=== PATIENT | female | born 1935 | race Caucasian/White ===

== ENCOUNTER 2017-09-30 12:45 | Inpatient (IN) | payer OTHER, MEDICARE ==
[~2017-09-30] VITALS: Ht 167.6 cm; Wt 87.5 kg
[~2017-09-30 12:45] MED LIST: LEVOTHYROXINE0.1 M1 PO
--- NOTE | 2017-09-30 13:17 | ED NEURO DEFICIT/STROKE ---
History of Present Illness General Chief Complaint: Upper Extremity Problem Stated Complaint: L ARM WEAKNESS X FEW HRS, NO OTHER SYMPTOMS Source: patient, family Exam Limitations: no limitations Vital Signs & Intake/Output Vital Signs & Intake/Output Vital Signs Date Time Temp Pulse Resp B/P B/P Pulse O2 O2 Flow FiO2 Mean Ox Delivery Rate 09/30 1615 59 15 164/58 97 Room Air Room Air 09/30 1456 97.6 63 16 162/84 97 Room Air 09/30 1400 Room Air Room Air 09/30 1248 96.2 55 16 166/69 95 Room Air Allergies Coded Allergies: NO KNOWN ALLERGIES (09/17/14) Reconcile Medications Levothyroxine Sodium 0.1 MG TAB 1 TAB PO DAILY AC THYROID (Reported) Triage Note: 81 Y/O FEMALE PRESENTS WITH L ARM WEAKNESS SINCE ? [id number] TODAY. DENIES ALL OTHER COMPLAINTS STATING "JUST FEELS LIKE A ARM". ABLE TO MOVE ARM THOUGH CANNOT LIFT HIGH THE RIGHT. L GRASP WEAKER THAN RIGHT. NO FACIAL DROOP NOTED Triage Nurses Notes Reviewed? yes Onset: Abrupt Duration: constant Timing: recent history Severity: moderate New Weakness: LUE HPI: Patient is a 81-year-old female with past medical history of hypertension and hypothyroidism who presents emergency room with concerns that today she woke up in her normal state of health approximately 9:30-10 AM while at rest she had a acute onset of left arm weakness where she cannot lift her arm as high as her right arm. Patient is left arm dominant. Denies any pain denies any fever chills headache neck pain blurred vision or visual acuity changes, facial droop slurred speech chest pain shortness of breath arm pain and jaw pain diaphoresis leg swelling, hemoptysis or lower extremity weakness or difficulty finding her words or confusion. History is confirmed by who is present. Patient took 2 X 325 aspirin prior to arrival (Noel Cano) Past History Travel History Traveled to [place] past 21 day No Medical History Any Pertinent Medical History? 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 No (Noel Cano) Review of Systems Review of Systems Constitutional: Reports: no symptoms. EENTM: Reports: no symptoms. Respiratory: Reports: no symptoms. Cardiovascular: Reports: no symptoms. GI: Reports: no symptoms. Genitourinary: Reports: no symptoms. Musculoskeletal: Reports: see HPI. Skin: Reports: no symptoms. Neurological/Psychological: Reports: see HPI. Hematologic/Endocrine: Reports: no symptoms. Immunologic/Allergic: Reports: no symptoms. All Other Systems: Reviewed and Negative (Noel Cano) Physical Exam Physical Exam General Appearance: no apparent distress, alert, comfortable Head: atraumatic Eyes: Bilateral: normal appearance, PERRL, EOMI. Ears, Nose, Throat: normal ENT inspection, moist mucous membrane, hearing grossly normal Neck: normal inspection, supple Respiratory: normal breath sounds, chest non-tender, no respiratory distress Cardiovascular: regular rate/rhythm, normal peripheral pulses Peripheral Pulses: 2+ radial (L) Gastrointestinal: normal bowel sounds, soft, non-tender Psychiatric: awake, alert, oriented x 3 Cranial Nerves: normal hearing, normal speech, PERRL Coordination/Gait: normal gait Skin: intact, normal color, warm/dry Comments: Cranial nerves II through XII intact Core Measures CVA/TIA Diagnosis: Yes NIH Stroke Scale NIH Stroke Scale Response Value Level of Consciousness alert 0 LOC Questions answers both correctly 0 LOC Commands obeys both correctly 0 Best Gaze normal 0 Visual Dickerson no visual loss 0 Facial Paresis normal 0 Motor Arm - Left can't resist gravity 2 Total 2 Symptom Start Date: 09/30/17 Swallow Evaluation Pass Swallow eval date 09/30/17 Swallow eval time 1330 Sepsis Present: No Sepsis Focused Exam Completed? No (Noel Cano) Progress Differential Diagnosis: acute glaucoma, Arroyo's Palsy, drug intoxication, electrolyte imbalance, encephalitis, hypoglycemia, intracranial Hem., intracranial mass/tumor, meningitis, migraine ARCOS, seizure disorder, stroke, subarachnoid Hem., vertebrobasilar insuff. Plan of Care: Orders Procedure Date/time Status Regular Diet 09/30 D Active Patient Data 09/30 1553 Active OXYGEN SETUP (GEN) 09/30 1550 Active Saline Lock 09/30 1550 Active Admit to inpatient 09/30 1550 Active Vital Signs 09/30 1550 Active Activity/Ambulation 09/30 1550 Active Code Status 09/30 1550 Active TROPONIN LEVEL 09/30 1316 Complete PARTIAL THROMBOPLASTIN TIME 09/30 1316 Complete PROTHROMBIN TIME 09/30 1316 Complete COMPREHENSIVE METABOLIC PANEL 09/30 1316 Complete CBC WITHOUT DIFFERENTIAL 09/30 131 Complete EKG 09/30 1254 Active Laboratory Tests 09/30/17 1320: Anion Gap 12, Estimated GFR 36 L, BUN/Creatinine Ratio 19.3, Glucose 113 H, Calcium 9.7, Total Bilirubin 0.6, AST 18, ALT 22, Alkaline Phosphatase 104, Troponin I < 0.01, Total Protein 7.9, Albumin 4.1, Globulin 3.8, Albumin/ Globulin Ratio 1.1, PT 10.9, INR 1.00, APTT 30, CBC w Diff NO MAN DIFF REQ, RBC 4.59, MCV 84.0, MCH 27.7, MCHC 33.0, RDW 14.0, MPV 7.7, Gran % 60.3, Lymphocytes % 18.9 L, Monocytes % 9.2, Eosinophils % 10.7 H, Basophils % 0.9, Absolute Granulocytes 5.3, Absolute Lymphocytes 1.7, Absolute Monocytes 0.8 H, Absolute Eosinophils 0.9, Absolute Basophils 0.1 Dizziness of present illness and exam findings and initially there was suspicion of acute CVA however patient's left upper extremity was noted with flexion of the shoulder to have a drift which would score NIH to be 2 over patient had dermatomes intact radial pulse +2 intact and had a full follow up manager strength left hand and full resisted range of motion of wrist. CT scan was resulted of angiogram of head and neck showing concerns of infarct to the right middle frontal gyrus, discuss results with Neurology was paged patient will be admitted to telemetry. Patient was therapeutic on aspirin prior to arrival Discussed results with patient and family members were aware PATIENTS - [facility] [phone] Discussed PT with neurologist Dr. Reyna who is aware of the PT AND admission and HE STATES no emergent intervention WARRANTED at this time Diagnostic Imaging: Viewed by Me: Radiology Read, CT Scan. Radiology Impression: acute abnormality Initial ED EK BPM,NSR Comments: PATIENT: MICK LARRY PRESENT AGE: 81 PATIENT ACCOUNT NO: [id number] : 36 LOCATION: [facility] ORDERING PHYSICIAN: Noel DO SERVICE DATE: 05 EXAM TYPE: RAD - XRY-SHOULDER COMPLETE-LEFT EXAMINATION: XR SHOULDER, LEFT CLINICAL INFORMATION: Left thumb weakness, paresthesia. COMPARISON: None TECHNIQUE: 3 views of the left shoulder. FINDINGS: The bony alignment is intact. The cortices are intact. No focal osseous abnormality present. The soft tissues are unremarkable. Mild diffuse osteopenia is seen. IMPRESSION: Mild diffuse osteopenia. No radiographic evidence of any acute fracture or dislocation or subluxation or any soft tissue abnormality. DICTATED BY: Juliocesar Ocampo MD DATE/TIME DICTATED:09/30/171425 SOFTWARE VALIDATION ENGINEER:CHIQUIS PATIENT: MICK LARRY PRESENT AGE: 81 PATIENT ACCOUNT NO: [id number] : 36 LOCATION: [facility] ORDERING PHYSICIAN: Noel DO SERVICE DATE: 09/30/17 EXAM TYPE: CAT - CT HEAD WO IV CONTRAST EXAMINATION: CT HEAD WITHOUT CONTRAST CLINICAL INFORMATION: Left arm weakness. COMPARISON: CT of the head done on 08/15/2017. TECHNIQUE: Contiguous axial imaging was performed from the skull base to vertex without intravenous administration of contrast. DLP: 604.82 mGy-cm FINDINGS: There is no evidence of acute intracranial hemorrhage or territorial infarction. No abnormal mass effect or midline shift is seen. Apple to white matter differentiation is well preserved. No extra-axial fluid collections are identified. The ventricles are normal in size. Mild diffuse cortical atrophy and mild chronic microvascular deep white matter ischemic changes are present. Previously documented right periorbital soft tissue hematoma shows interval resolution. The osseous structures and soft tissues are normal. The mastoid air cells and visualized portions of the paranasal sinuses are well aerated. IMPRESSION: Interval resolution of right periorbital soft tissue hematoma since 08/15/2017. No other significant change. Specifically no acute intracranial pathology. DICTATED BY: Juliocesar Ocampo MD DATE/TIME DICTATED:09/30/171349 SOFTWARE VALIDATION ENGINEER:CHIQUIS DATE/TIME TRANSCRIBED:09/30/17 (Noel Cano) Departure Departure Disposition: STILL A PATIENT Condition: Guarded Clinical Impression Primary Impression: CVA (cerebral vascular accident) Referrals: Iliana Dahl APRN (PCP/Family) Departure Forms: Customer Survey General Discharge Information Admission Note Spoke With: Chelsea Souza MD Documentation of Exam: Documentation of any treatments & extenuating circumstances including Concerns Regarding Discharge (functional status, medication knowledge or non-compliance, living conditions, etc.) that warrant an admission rather than observation: [ Patient requires telemetry monitoring and frequent neurological checks and neurology consultation anticoagulation and possible short-term rehabilitation] (Noel Cano) PA/FLIGHT COMMUNICATIONS SPECIALIST Co-Sign Statement Statement: ED Attending supervision documentation- X I saw and evaluated the patient. I have also reviewed all the pertinent lab results and diagnostic results. I agree with the findings and the plan of care as documented in the PA's/FLIGHT COMMUNICATIONS SPECIALIST's documentation. 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 [] Additions or exceptions (if any) to the PAs/FLIGHT COMMUNICATIONS SPECIALIST's note and plan are summarized below: [] (Red CHILDERS,Thanh) Critical Care Note Critical Care Note Critical Care Time: 30-74 min (Noel Cano)
[2017-09-30 13:47] LABS: ABSOLUTE BASOPHIL COUNT 0.1 /CUMM (0.0-0.2); ABSOLUTE EOSINOPHIL COUNT 0.9 /CUMM (0.0-0.7); ABSOLUTE GRANULOCYTE CT 5.3 /CUMM (1.4-6.5); ABSOLUTE LYMPH COUNT 1.7 /CUMM (1.2-3.4); ABSOLUTE MONOCYTE COUNT 0.8 /CUMM (0.10-0.60); BASOPHIL % 0.9 % (0.0-2.0); EOSINOPHIL % 10.7 % (0-5); GRANULOCYTE % 60.3 % (42.2-75.2); HEMATOCRIT 38.6 % (37-47); MEAN CORPUSCULAR HGB 27.7 PG (27.0-31.0); MEAN PLATELET VOLUME 7.7 FL (7.4-10.4); PLATELET COUNT 388 /CUMM (130-400); RED BLOOD CELL CT 4.59 /CUMM (4.20-5.40); WHITE BLOOD CELL COUNT 8.8 /CUMM (4.8-10.8)
[2017-09-30 13:52] LABS: PT 10.9 SEC (9.4-12.5); PTT 30 SEC (25-37)
--- NOTE | 2017-09-30 13:58 | CT SCAN REPORT ---
EXAMINATION: CT HEAD WITHOUT CONTRAST CLINICAL INFORMATION: Left arm weakness. COMPARISON: CT of the head done on 08/15/2017. TECHNIQUE: Contiguous axial imaging was performed from the skull base to vertex without intravenous administration of contrast. DLP: 604.82 mGy-cm FINDINGS: There is no evidence of acute intracranial hemorrhage or territorial infarction. No abnormal mass effect or midline shift is seen. Apple to white matter differentiation is well preserved. No extra-axial fluid collections are identified. The ventricles are normal in size. Mild diffuse cortical atrophy and mild chronic microvascular deep white matter ischemic changes are present. Previously documented right periorbital soft tissue hematoma shows interval resolution. The osseous structures and soft tissues are normal. The mastoid air cells and visualized portions of the paranasal sinuses are well aerated. IMPRESSION: Interval resolution of right periorbital soft tissue hematoma since 08/15/2017. No other significant change. Specifically no acute intracranial pathology.
--- NOTE | 2017-09-30 14:43 | RADIOLOGY REPORT ---
EXAMINATION: XR SHOULDER, LEFT CLINICAL INFORMATION: Left thumb weakness, paresthesia. COMPARISON: None TECHNIQUE: 3 views of the left shoulder. FINDINGS: The bony alignment is intact. The cortices are intact. No focal osseous abnormality present. The soft tissues are unremarkable. Mild diffuse osteopenia is seen. IMPRESSION: Mild diffuse osteopenia. No radiographic evidence of any acute fracture or dislocation or subluxation or any soft tissue abnormality.
--- NOTE | 2017-09-30 15:26 | CT SCAN REPORT ---
EXAMINATION: CT ANGIOGRAM NECK WITH CONTRAST CT ANGIOGRAM BRAIN WITH CONTRAST CLINICAL INFORMATION: Left arm weakness. COMPARISON: Head CT performed earlier the same day. TECHNIQUE: Test bolus sequences followed by intravenous administration 95 mL of Optiray 320. Helical imaging was performed in the axial plane from the thoracic inlet to the skull vertex. Delayed postcontrast imaging of the head was also performed. The data was processed at the staff cytotechnologist workstation for generation of MIP sequences. Angled MIPs and volume rendered reformatted images were also generated at an offline 3D workstation. Stenoses are assessed in accordance with NASCET criteria unless otherwise indicated. DLP: 1005 mGy-cm FINDINGS: Brain: There is focal hypoattenuation in the right middle frontal gyrus with gyriform enhancement on the postcontrast images typical of a subacute infarct. There is no CT evidence of large territory infarction. Chronic lacunar infarct in the left thalamus. There is moderate scattered hypoattenuation in the bilateral cerebral white matter, which is nonspecific but likely reflects small vessel disease. There is mild diffuse brain parenchymal volume loss with prominence of the ventricles and sulci. No evidence of hydrocephalus. There is mild to moderate paranasal sinus mucosal thickening. Neck CTA: There is severe atheromatous change involving the aortic arch but without severe stenosis of the great vessel origins. There are atheromatous changes involving the bilateral common carotid arteries without significant stenosis. Atheromatous changes at the bilateral carotid bifurcations extending into the proximal internal carotid arteries resulting in 61% stenosis of the proximal right ICA and less than 50% stenosis of the proximal left ICA. The cervical segments of both internal carotid arteries are patent. There is moderate stenosis at the left vertebral artery origin. Both vertebral artery cervical segments are patent. Head CTA: No intracranial aneurysm or large vessel occlusion is seen. ACAs and MCAs are patent. The intradural vertebral arteries and basilar artery are patent. There is focal stenosis involving the calcarine and parieto-occipital branches of the right CUPOLA PATCHER HELPER. The left CUPOLA PATCHER HELPER is patent. The posterior communicating arteries are atretic. Non-vascular findings: There are emphysematous changes at the bilateral lung apices without consolidation or mass. Multilevel degenerative changes are seen throughout the cervical and upper thoracic spine. There is no neck mass or fluid collection. IMPRESSION: CT head: - No intracranial hemorrhage or large acute acute infarction. - Subacute infarct in the right middle frontal gyrus within the middle cerebral artery territory with associated enhancement. - Chronic lacunar infarct in the left thalamus and background changes of moderate microangiopathy. CTA neck: - Atheromatous changes result in 61% stenosis of the proximal right ICA with less than 50% stenosis of the proximal left ICA. - Moderate stenosis of the left vertebral artery origin. - Severe atheromatous changes involving the aortic arch. CTA head: - No large vessel occlusion. - Focal stenoses involving the calcarine and parieto-occipital branches of the right CUPOLA PATCHER HELPER.
--- NOTE | 2017-09-30 16:02 | History & Physical ---
Kina CHILDERS,[facility] 09/30/17 1601: General Information and HPI MD Statement: I have seen and personally examined MICK LARRY and documented this H&P. The patient is a 81 year old F who presented with a patient stated chief complaint of [left upper extremity weakness]. Source of Information: patient, family Exam Limitations: no limitations History of Present Illness: 9-year-old female with a past medical history of hypertension and hypothyroidism who presented with a chief complaint of left upper extremity weakness. The patient was in her usual state of health until 9:30 this morning when she started to notice left upper extremity weakness. Her symptoms did not improve for which she decided to visit the ED. She denies any other weaknesses, numbness, or tingling. She had no history of cardiac disease, atrial fibrillation, or CVA in the past. Prior to coming to the ED she took 650 mg of aspirin. The rest of the review of system were benign Allergies/Medications Allergies: Coded Allergies: NO KNOWN ALLERGIES (09/17/14) Home Med list Amlodipine Besylate 10 MG TABLET 1 TAB PO DAILY HTN (Reported) Carvedilol 25 MG TABLET 1 TAB PO BID HTN (Reported) Levothyroxine Sodium 100 MCG TABLET 1 TAB PO DAILY HYPOTHYROID (Reported) Past History Travel History Traveled to [place] past 21 day No Medical History Neurological: NONE EENT: NONE Cardiovascular: hypertension Respiratory: NONE Gastrointestinal: NONE Hepatic: NONE Renal: NONE Musculoskeletal: NONE Psychiatric: NONE Endocrine: hypothyroidism Blood Disorders: NONE 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 Denies: chills, diaphoresis, fever, malaise, unexplained weight loss. EENTM: Denies: visual changes, hearing changes. Cardiovascular: Denies: chest pain, edema, orthopena, palpitations, peripheral edema, syncope. Respiratory: Reports: cough. Denies: hemoptysis, orthopnea, short of breath, sputum production, stridor, wheezing. GI: Denies: abdominal pain, bloating, constipation, diarrhea, melena, nausea, vomiting. Genitourinary: Denies: dysuria, hematuria. Musculoskeletal: Denies: muscle pain. Skin: Denies: rash. Neurological/Psychological: Reports: weakness (left UE). Denies: anxiety, ataxia, confusion, depressed, dementia, headache, numbness, tingling, tremors. Exam & Diagnostic Data Last 24 Hrs of Vital Signs/I&O Vital Signs Date Time Temp Pulse Resp B/P B/P Pulse O2 O2 Flow FiO2 Mean Ox Delivery Rate 09/30 1615 59 15 164/58 97 Room Air Room Air 09/30 1456 97.6 63 16 162/84 97 Room Air 09/30 1400 Room Air Room Air 09/30 1248 96.2 55 16 166/69 95 Room Air Intake & Output 09/30 1600 09/30 0800 09/30 0000 Intake Total 0 Output Total Balance 0 Intake, Oral 0 Patient 81.647 kg Weight Weight Reported by Patient Measurement Method Physical Exam General Appearance Alert, Oriented X3, Cooperative, No Acute Distress Skin No Rashes HEENT Atraumatic, PERRLA, EOMI, Mucous Membr. moist/pink Neck Supple, No JVD Cardiovascular Regular Rate, Normal S1, Normal S2, No Murmurs Lungs normal air-entry with mild diffuse wheezing Abdomen Soft, No Tenderness Neurological Normal Gait, Normal Speech, Strength at 5/5 X4 Ext, Sensation Intact, Cranial Nerves 3-12 NL, left UE driffting and weaker sas administrator compare to right hand Extremities No Clubbing, No Cyanosis, No Edema Last 24 Hrs of Labs/Ruben: Laboratory Tests 09/30/17 1320: Anion Gap 12, Estimated GFR 36 L, BUN/Creatinine Ratio 19.3, Glucose 113 H, Calcium 9.7, Total Bilirubin 0.6, AST 18, ALT 22, Alkaline Phosphatase 104, Troponin I < 0.01, Total Protein 7.9, Albumin 4.1, Globulin 3.8, Albumin/ Globulin Ratio 1.1, PT 10.9, INR 1.00, APTT 30, CBC w Diff NO MAN DIFF REQ, RBC 4.59, MCV 84.0, MCH 27.7, MCHC 33.0, RDW 14.0, MPV 7.7, Gran % 60.3, Lymphocytes % 18.9 L, Monocytes % 9.2, Eosinophils % 10.7 H, Basophils % 0.9, Absolute Granulocytes 5.3, Absolute Lymphocytes 1.7, Absolute Monocytes 0.8 H, Absolute Eosinophils 0.9, Absolute Basophils 0.1 Assessment/Plan Assessment: #CVA with left UE weakness * Monitor in telemetry to rule out A. fib as a source of the stroke * Start daily aspirin and statin * Echocardiogram * Neuro check every 2 hours * Permissive hypertension target blood pressure 160/90 * She passed bedside swallow eval * Neurology was consulted #Hypertension * Continue carvedilol * Hold amlodipine for permissive hypertension * Target blood pressure 160/90 #Hypothyroidism * Continue home dose of 100 levothyroxin #CRISTI * Most likely secondary to dehydration * We will start gentle IV hydration with half-normal saline @ 50ml/h * BEP in am -Heart healthy diet -DVT prophylaxis with Alps and subcutaneous heparin -FC As Ranked By This Provider Problem List: 1. CVA (cerebral vascular accident) Core Measures/Misc (01/20) Acute Coronary Syndrome ACS Diagnosis: No Congestive Heart Failure Congestive Heart Failure Diagnosis No Cerebrovascular Accident CVA/TIA Diagnosis: Yes NIH Stroke Scale: Total 1 Date Last Known Well: 09/30/17 Time Last Known Well: 929 Symptom Start Date: 09/30/17 Symptom Start Time: 929 Reason tPA not ordered Medical Contraindication (out-side windo and sx improved) Swallow Evaluation Pass Current/Past Hx AFib/AFlutter No VTE (View Protocol) VTE Risk Factors Acute Medical Illness No Mechanical VTE Prophylaxis d/t N/A MechProphylax Ordered No VTE Pharm Prophylaxis d/t NA PharmProphylax ordered Sepsis (View protocol) Sepsis Present: No If YES complete Sepsis Event Note If YES complete Sepsis Event Note Chelsea Souza MD 09/30/17 1848: Core Measures/Misc (01/20) Sepsis (View protocol) If YES complete Sepsis Event Note If YES complete Sepsis Event Note Attending MD Review Statement Attending Statement Attending MD Statement: examined this patient, discuss w/resident/PA/FIELD INSTALLER, agreed w/resident/PA/FIELD INSTALLER, reviewed EMR data (avail) Attending Assessment/Plan: 81F presenting with awakening with left arm weakness. Found herself unable to raise her left arm at the shoulder, though her handgrip was intact. She only elt weaknes there., and no other symptoms. She was able to grab something with her left hand but not hold on to it. She denies headache, vision changes, slurred speech dysphagia, neck pain, arm pain, paresthiesa, numbness. No prior similar symptoms. CT head shows right infarct. Passed bedside swallow. Plan - Admit to telemetry - ASA and statin - Neurology consult - Echocardiogram - Occupational therapy - Continue home medications - DVT PPx
[2017-09-30] MEDS ORDERED: CARVEDILOL25 M1 PO (16:57)
[2017-09-30] MEDS ORDERED: AMLODIPINE BESY10 M1 PO (16:57)
[2017-09-30] MEDS ORDERED: LEVOTHYROXINE100 MC1 PO (16:57)
[2017-09-30 17:40] VITALS: BP 178/92
[2017-09-30 22:12] VITALS: BP 180/96
[2017-10-01 06:57] VITALS: BP 154/70
[2017-10-01 07:48] LABS: ABSOLUTE BASOPHIL COUNT 0.1 /CUMM (0.0-0.2); ABSOLUTE EOSINOPHIL COUNT 0.8 /CUMM (0.0-0.7); ABSOLUTE GRANULOCYTE CT 3.8 /CUMM (1.4-6.5); ABSOLUTE MONOCYTE COUNT 0.9 /CUMM (0.10-0.60); BASOPHIL % 0.9 % (0.0-2.0); EOSINOPHIL % 10.9 % (0-5); GRANULOCYTE % 50.3 % (42.2-75.2); HEMATOCRIT 36.5 % (37-47); MEAN CORPUSCULAR HGB 27.4 PG (27.0-31.0); MEAN CORPUSCULAR HGB CONC 32.6 G/DL (33.0-37.0); MEAN CORPUSCULAR VOLUME 83.9 FL (81.0-99.0); MEAN PLATELET VOLUME 7.8 FL (7.4-10.4); PLATELET COUNT 361 /CUMM (130-400); RBC DISTRIBUTION WIDTH 14.2 % (11.5-14.5); RED BLOOD CELL CT 4.35 /CUMM (4.20-5.40); WHITE BLOOD CELL COUNT 7.6 /CUMM (4.8-10.8)
--- NOTE | 2017-10-01 09:58 | PN- Housestaff ---
Kina CHILDERS,Isgail 10/01/17 0958: Subjective Follow-up For: left upper extremity weakness, with confirmed subacute right stroke Subjective: Afebrile, mildly hypertensive(permissive), and saturating well on room air. The patient left upper extremity weakness significantly improved, however she continue to be mildly below baseline. She denies any other current active complaints. Review of Systems Constitutional: Reports: see HPI. Objective Last 24 Hrs of Vital Signs/I&O Vital Signs Date Time Temp Pulse Resp B/P B/P Pulse O2 O2 Flow FiO2 Mean Ox Delivery Rate 10/01 1008 56 158/62 10/01 1001 56 158/62 10/01 0800 93 Room Air 10/01 0657 97.8 54 20 154/70 93 Room Air 09/30 2241 Room Air 09/30 2212 59 180/96 09/30 2212 98.2 59 18 180/96 95 09/30 1740 97.9 61 18 178/92 96 09/30 1615 59 15 164/58 97 Room Air Room Air 09/30 1456 97.6 63 16 162/84 97 Room Air 09/30 1400 Room Air Room Air 09/30 1248 96.2 55 16 166/69 95 Room Air Intake & Output 10/01 1600 10/01 0800 10/01 0000 Intake Total 800 350 Output Total Balance 800 350 Intake, IV 350 Intake, Oral 800 Patient 87.543 kg Weight Weight Bed scale Measurement Method Physical Exam General Appearance: Alert, Oriented X3, Cooperative, No Acute Distress Skin: No Rashes HEENT: Atraumatic, PERRLA, EOMI, Mucous Membr. moist/pink Neck: Supple, No JVD Cardiovascular: Regular Rate, Normal S1, Normal S2, No Murmurs Lungs: Clear to Auscultation, Normal Air Movement Abdomen: Soft, No Tenderness Neurological: Normal Gait, Normal Speech, Strength at 5/5 X4 Ext, Normal Tone, Sensation Intact, Cranial Nerves 3-12 NL, Reflexes 2+, mild left side drifting Extremities: No Clubbing, No Cyanosis, No Edema Current Medications: Current Medications Sig/Bro Start time Last Medication Dose Route Stop Time Status Admin Aspirin 81 MG DAILY 10/01 0900 AC 10/01 PO 0903 Atorvastatin Calcium 80 MG 1700 09/30 1700 AC 09/30 PO 1816 Carvedilol 25 MG BID 09/30 2100 AC 10/01 PO 1008 Heparin Sodium 5,000 UNIT Q8 09/30 2200 AC 10/01 (Porcine) SC 0545 Levothyroxine Sodium 0.1 MG DAILY AC 10/01 0700 AC 10/01 PO 0545 Sodium Chloride 1,000 ML Q20H 09/30 1730 DC 09/30 IV 1752 Sodium Chloride 500 ML BOLUS ONE 09/30 1415 DC 09/30 IV 09/30 1514 1500 Last 24 Hrs of Lab/Ruben Results Last 24 Hrs of Labs/Mics: Laboratory Tests 10/01/17 0631: Anion Gap 10, Estimated GFR 39 L, BUN/Creatinine Ratio 17.7, Triglycerides 139, Cholesterol 194, LDL Cholesterol, Calc 113, HDL Cholesterol 54, Cholesterol/HDL Ratio 4, CBC w Diff NO MAN DIFF REQ, RBC 4.35, MCV 83.9, MCH 27.4, MCHC 32.6 L, RDW 14.2, MPV 7.8, Gran % 50.3, Lymphocytes % 26.5, Monocytes % 11.4 H, Eosinophils % 10.9 H, Basophils % 0.9, Absolute Granulocytes 3.8, Absolute Lymphocytes 2.0, Absolute Monocytes 0.9 H, Absolute Eosinophils 0.8, Absolute Basophils 0.1 09/30/17 1320: Anion Gap 12, Estimated GFR 36 L, BUN/Creatinine Ratio 19.3, Glucose 113 H, Calcium 9.7, Total Bilirubin 0.6, AST 18, ALT 22, Alkaline Phosphatase 104, Troponin I < 0.01, Total Protein 7.9, Albumin 4.1, Globulin 3.8, Albumin/ Globulin Ratio 1.1, PT 10.9, INR 1.00, APTT 30, CBC w Diff NO MAN DIFF REQ, RBC 4.59, MCV 84.0, MCH 27.7, MCHC 33.0, RDW 14.0, MPV 7.7, Gran % 60.3, Lymphocytes % 18.9 L, Monocytes % 9.2, Eosinophils % 10.7 H, Basophils % 0.9, Absolute Granulocytes 5.3, Absolute Lymphocytes 1.7, Absolute Monocytes 0.8 H, Absolute Eosinophils 0.9, Absolute Basophils 0.1 Assessment/Plan Assessment: 81-year-old female with a past medical history of hypertension and hypothyroidism who presented because of left upper extremity weakness started on the day of admission. She was found to have subacute stroke in the right middle frontal gyrus within the middle cerebral artery. She also had lacunar infarction in the left thalamus. She has a long remote history of smoking but she quit 15 years ago. On admission she had a mild CRISTI slightly improved with hydration. The patient major risk factor or history of smoking, hypertension, and hypothyroidism. There is no need for MRI as CT clearly confirmed subacute infarction. She has no arrhythmias on telemetry which make the thrombus less likely coming from the heart, pending echo. She had carotid stenosis seen on CTA, it 61%, so does not require surgical interventions and can be managed medically. #CVA with left UE weakness * Continue aspirin and statin * Pending Echocardiogram * Neuro check every 2 hours * Restart all blood pressure medications include amlodipine and carvedilol * OT therapy as an inpatient and will be referred as an outpatient as well. #Hypertension * Continue carvedilol * Restart amlodipine #Hypothyroidism * Continue home dose of 100 levothyroxin #CRISTI * It's not clear if she had underlying CKD * Possibly CRISTI, given slight creatinine improvement with hydration * Will be instructed to follow with PCP -Heart healthy diet -DVT prophylaxis with Alps and subcutaneous heparin -FC Problem List: 1. CVA (cerebral vascular accident) Pain Ratin Pain Location: na Pain Goal: Remain pain free Pain Plan: See A&P Tomorrow's Labs & Rationales: BEP if not discharge today Tari CHILDERS,Arlette 10/01/17 1214: Attending MD Review Statement Attending Statement Attending MD Statement: examined this patient, discuss w/resident/PA/STATIONARY BOILER FIREMAN, agreed w/resident/PA/STATIONARY BOILER FIREMAN, reviewed EMR data (avail), discussed with nursing, discussed with case mgmt, reviewed images Attending Assessment/Plan: Pt is doing well and is eager to go home. This is an 81-year-old female with a past medical history of hypertension and hypothyroidism who is here with an acute to subacute infarct in the right middle frontal gyrus of the right middle cerebral artery. She has some left arm weakness and is actively working with OT for the same. She had a CTA done of the head and neck and there is no hemodynamically significant stenosis. We will follow up the echo to make sure there is no thrombus. If the echo is okay she'll leave on an aspirin and statin and her usual blood pressure medicines. She'll have outpatient occupational therapy. She passed a swallow eval and doesn't need physical therapy and is refusing a visiting nurse service at home.
[2017-10-01 10:01] VITALS: BP 158/62
--- NOTE | 2017-10-01 10:26 | Cons- Neurology ---
General Information and HPI Consulting Request Date of Consult: 10/01/17 Requested By: Arlette Marc MD Reason for Consult: stroke Source of Information: patient Exam Limitations: no limitations History of Present Illness: 81-year-old left-handed woman who awoke yesterday morning with a flaccid left arm. Since that time, strength has been gradually improving. She is still having difficulty writing. She reports that her gait was slightly unsteady initially, but she did well walking with the physical therapist this morning. She denied any associated numbness, limb pain, headache, dizziness, visual changes, facial droop, slurred speech, swallowing difficulties, convulsive activity, alteration of consciousness. She is a former cigarette smoker who quit 10-15 years ago. Prior to admission she was not on aspirin or statin therapy. Both have been started on this admission. Family history is negative for stroke to her knowledge. Allergies/Medications Allergies: Coded Allergies: NO KNOWN ALLERGIES (09/17/14) Home Med List: Amlodipine Besylate 10 MG TABLET 1 TAB PO DAILY HTN (Reported) Carvedilol 25 MG TABLET 1 TAB PO BID HTN (Reported) Levothyroxine Sodium 100 MCG TABLET 1 TAB PO DAILY HYPOTHYROID (Reported) Current Medications: Current Medications Sig/Bro Start time Last Medication Dose Route Stop Time Status Admin Aspirin 81 MG DAILY 10/01 0900 AC 10/01 PO 0903 Atorvastatin Calcium 80 MG 1700 09/30 1700 AC 09/30 PO 1816 Carvedilol 25 MG BID 09/30 2100 AC 10/01 PO 1008 Heparin Sodium 5,000 UNIT Q8 09/30 2200 AC 10/01 (Porcine) SC 0545 Levothyroxine Sodium 0.1 MG DAILY AC 10/01 0700 AC 10/01 PO 0545 Sodium Chloride 1,000 ML Q20H 09/30 1730 DC 09/30 IV 1752 Sodium Chloride 500 ML BOLUS ONE 09/30 1415 DC 09/30 IV 09/30 1514 1500 Review of Systems Review of Systems: REVIEW OF SYSTEMS: (-) = negative / normal blank = not discussed Neurologic: see HPI Eyes: Recent left eye cataract surgery, pending right eye cataract surgery ENT: (-) Constitutional: (-) CV: (-) Respiratory: (-) /Renal: (-) Musculoskeletal: (-) Skin: (-) Psychiatric: (-) Heme: (-) GI: (-) Allergy/Immune: (-) Endocrine: (-) Other: (-) Past History Travel History Traveled to [place] past 21 day No Medical History Blood Transfusion Hx: No Neurological: NONE EENT: NONE Cardiovascular: hypertension Respiratory: NONE Gastrointestinal: NONE Hepatic: NONE Renal: NONE Musculoskeletal: NONE Psychiatric: NONE Endocrine: hypothyroidism Blood Disorders: NONE Cancer(s): NONE STRATEGIC PLANNING ANALYST/Reproductive: NONE Surgical History Surgical History: non-contributory Psychosocial History Where Do You Live? Home Smoking Status: Former Smoker Exam & Diagnostic Data Vital Signs and I&O Vital Signs Date Time Temp Pulse Resp B/P B/P Pulse O2 O2 Flow FiO2 Mean Ox Delivery Rate 10/01 1008 56 158/62 10/01 1001 56 158/62 10/01 0657 97.8 54 20 154/70 93 Room Air 09/30 2241 Room Air 09/30 2212 59 180/96 09/30 2212 98.2 59 18 180/96 95 09/30 1740 97.9 61 18 178/92 96 09/30 1615 59 15 164/58 97 Room Air Room Air 09/30 1456 97.6 63 16 162/84 97 Room Air 09/30 1400 Room Air Room Air 09/30 1248 96.2 55 16 166/69 95 Room Air Intake & Output 10/01 1600 10/01 0800 10/01 0000 Intake Total 350 Output Total Balance 350 Intake, IV 350 Patient 193 lb Weight Weight Bed scale Measurement Method Physical Exam: PHYSICAL EXAMINATION: nl = normal NT or blank = not tested GENERAL Appearance: nl Head: nl Eyes: nl ENT: nl Neck: nl Carotids: nl Lungs: nl Heart: nl Extremities: nl NEUROLOGIC MENTAL STATUS Level of consciousness: nl Orientation: nl Attention / Concentration: nl Memory: nl Fund of Knowledge: nl Speech / Language: nl NEUROLOGIC CRANIAL NERVES I: Olfaction: NT II: Optic nerves: Not well visualized and direct funduscopic examination Visual valdes: nl III: Pupils: nl Levator palpebrae: nl III, IV, : Ocular alignment: nl Extraocular motility: nl Pursuits/ saccades: nl V: Facial sensation: nl Masseter/Pterygoids: nl VII: Facial Motor: nl VIII: Hearing (finger rub): nl IX, X: Uvula and palate: nl XI: SCM, Upper trap.: nl XII: Tongue: nl MOTOR / NEUROMUSCULAR Bulk: nl Tone: nl Strength: Very subtle left upper extremity weakness with pronator drift, positive satellite sign Rapid alternating movements: Mildly impaired left hand Fine motor movements: Impaired left hand Abnormal / involuntary movements: none CEREBELLAR / COORDINATION: Mild left upper extremity ataxia SENSATION: intact to light touch. No extinction to double simultaneous stimulation. DTR's symmetrically trace to absent PLANTARS: flexor GAIT: Not tested Last 48 Hours of Lab Results: Laboratory Tests 10/01 09/30 0631 1320 Chemistry Sodium (137 - 145 mmol/L) 141 143 Potassium (3.5 - 5.1 mmol/L) 4.3 4.9 Chloride (98 - 107 mmol/L) 106 106 Carbon Dioxide (22 - 30 mmol/L) 25 25 Anion Gap (5 - 16) 10 12 BUN (7 - 17 mg/dL) 23 H 27 H Creatinine (0.5 - 1.0 mg/dL) 1.3 H 1.4 H Estimated GFR (>60 ml/min) 39 L 36 L BUN/Creatinine Ratio (7 - 25 %) 17.7 19.3 Glucose (65 - 99 mg/dL) 113 H Calcium (8.4 - 10.2 mg/dL) 9.7 Total Bilirubin (0.2 - 1.3 mg/dL) 0.6 AST (14 - 36 U/L) 18 ALT (9 - 52 U/L) 22 Alkaline Phosphatase (<127 U/L) 104 Troponin I (< 0.11 ng/ml) < 0.01 Total Protein (6.3 - 8.2 g/dL) 7.9 Albumin (3.5 - 5.0 g/dL) 4.1 Globulin (1.9 - 4.2 gm/dL) 3.8 Albumin/Globulin Ratio (1.1 - 2.2 %) 1.1 Triglycerides (<150 mg/dL) 139 Cholesterol (<200 MG/DL) 194 LDL Cholesterol, Calc (65 - 129 mg/dL) 113 HDL Cholesterol (40 - 60 mg/dL) 54 Cholesterol/HDL Ratio (0.00 - 4.23 %) 4 Coagulation PT (9.4 - 12.5 SEC) 10.9 INR (0.90 - 1.19) 1.00 APTT (25 - 37 SEC) 30 Hematology CBC w Diff NO MAN DIFF REQ NO MAN DIFF REQ WBC (4.8 - 10.8 /CUMM) 7.6 8.8 RBC (4.20 - 5.40 /CUMM) 4.35 4.59 Hgb (12.0 - 16.0 G/DL) 11.9 L 12.7 Hct (37 - 47 %) 36.5 L 38.6 MCV (81.0 - 99.0 FL) 83.9 84.0 MCH (27.0 - 31.0 PG) 27.4 27.7 MCHC (33.0 - 37.0 G/DL) 32.6 L 33.0 RDW (11.5 - 14.5 %) 14.2 14.0 Plt Count (130 - 400 /CUMM) 361 388 MPV (7.4 - 10.4 FL) 7.8 7.7 Gran % (42.2 - 75.2 %) 50.3 60.3 Lymphocytes % (20.5 - 51.1 %) 26.5 18.9 L Monocytes % (1.7 - 9.3 %) 11.4 H 9.2 Eosinophils % (0 - 5 %) 10.9 H 10.7 H Basophils % (0.0 - 2.0 %) 0.9 0.9 Absolute Granulocytes (1.4 - 6.5 /CUMM) 3.8 5.3 Absolute Lymphocytes (1.2 - 3.4 /CUMM) 2.0 1.7 Absolute Monocytes (0.10 - 0.60 /CUMM) 0.9 H 0.8 H Absolute Eosinophils (0.0 - 0.7 /CUMM) 0.8 0.9 Absolute Basophils (0.0 - 0.2 /CUMM) 0.1 0.1 Imaging/Other Studies: PATIENT: MICK LARRY PRESENT AGE: 81 PATIENT ACCOUNT NO: [id number] : 36 LOCATION: [facility] ORDERING PHYSICIAN: Noel DO SERVICE DATE: 09/30/17 EXAM TYPE: CAT - CT HEAD WO IV CONTRAST EXAMINATION: CT HEAD WITHOUT CONTRAST CLINICAL INFORMATION: Left arm weakness. COMPARISON: CT of the head done on 08/15/2017. TECHNIQUE: Contiguous axial imaging was performed from the skull base to vertex without intravenous administration of contrast. DLP: 604.82 mGy-cm FINDINGS: There is no evidence of acute intracranial hemorrhage or territorial infarction. No abnormal mass effect or midline shift is seen. Apple to white matter differentiation is well preserved. No extra-axial fluid collections are identified. The ventricles are normal in size. Mild diffuse cortical atrophy and mild chronic microvascular deep white matter ischemic changes are present. Previously documented right periorbital soft tissue hematoma shows interval resolution. The osseous structures and soft tissues are normal. The mastoid air cells and visualized portions of the paranasal sinuses are well aerated. IMPRESSION: Interval resolution of right periorbital soft tissue hematoma since 08/15/2017. No other significant change. Specifically no acute intracranial pathology. DICTATED BY: Juliocesar Ocampo MD DATE/TIME DICTATED:09/30/171349 RUBBER STAMP ASSEMBLER:CHIQUIS DATE/TIME TRANSCRIBED:09/30/171349 PATIENT: MICK LARRY PRESENT AGE: 81 PATIENT ACCOUNT NO: [id number] : 36 LOCATION: [facility] ORDERING PHYSICIAN: Noel DO SERVICE DATE: 09/30/17 EXAM TYPE: CAT - CT HEAD ANGIOGRAM; CT NECK ANGIOGRAM EXAMINATION: CT ANGIOGRAM NECK WITH CONTRAST CT ANGIOGRAM BRAIN WITH CONTRAST CLINICAL INFORMATION: Left arm weakness. COMPARISON: Head CT performed earlier the same day. TECHNIQUE: Test bolus sequences followed by intravenous administration 95 mL of Optiray 320. Helical imaging was performed in the axial plane from the thoracic inlet to the skull vertex. Delayed postcontrast imaging of the head was also performed. The data was processed at the medical office technologist workstation for generation of MIP sequences. Angled MIPs and volume rendered reformatted images were also generated at an offline 3D workstation. Stenoses are assessed in accordance with NASCET criteria unless otherwise indicated. DLP: 1005 mGy-cm FINDINGS: Brain: There is focal hypoattenuation in the right middle frontal gyrus with gyriform enhancement on the postcontrast images typical of a subacute infarct. There is no CT evidence of large territory infarction. Chronic lacunar infarct in the left thalamus. There is moderate scattered hypoattenuation in the bilateral cerebral white matter, which is nonspecific but likely reflects small vessel disease. There is mild diffuse brain parenchymal volume loss with prominence of the ventricles and sulci. No evidence of hydrocephalus. There is mild to moderate paranasal sinus mucosal thickening. Neck CTA: There is severe atheromatous change involving the aortic arch but without severe stenosis of the great vessel origins. There are atheromatous changes involving the bilateral common carotid arteries without significant stenosis. Atheromatous changes at the bilateral carotid bifurcations extending into the proximal internal carotid arteries resulting in 61% stenosis of the proximal right ICA and less than 50% stenosis of the proximal left ICA. The cervical segments of both internal carotid arteries are patent. There is moderate stenosis at the left vertebral artery origin. Both vertebral artery cervical segments are patent. Head CTA: No intracranial aneurysm or large vessel occlusion is seen. ACAs and MCAs are patent. The intradural vertebral arteries and basilar artery are patent. There is focal stenosis involving the calcarine and parieto-occipital branches of the right HOUSEKEEPING LAUNDRY WORKER. The left HOUSEKEEPING LAUNDRY WORKER is patent. The posterior communicating arteries are atretic. Non-vascular findings: There are emphysematous changes at the bilateral lung apices without consolidation or mass. Multilevel degenerative changes are seen throughout the cervical and upper thoracic spine. There is no neck mass or fluid collection. IMPRESSION: CT head: - No intracranial hemorrhage or large acute acute infarction. - Subacute infarct in the right middle frontal gyrus within the middle cerebral artery territory with associated enhancement. - Chronic lacunar infarct in the left thalamus and background changes of moderate microangiopathy. CTA neck: - Atheromatous changes result in 61% stenosis of the proximal right ICA with less than 50% stenosis of the proximal left ICA. - Moderate stenosis of the left vertebral artery origin. - Severe atheromatous changes involving the aortic arch. CTA head: - No large vessel occlusion. - Focal stenoses involving the calcarine and parieto-occipital branches of the right HOUSEKEEPING LAUNDRY WORKER. DICTATED BY: Dawit Bragg MD DATE/TIME DICTATED:09/30/171506 RUBBER STAMP ASSEMBLER:CHIQUIS DATE/TIME TRANSCRIBED:09/30/171506 Assessment/Plan Assessment: Right frontal ischemic stroke with rapidly improving left sided weakness and a left handed woman. Imaging shows both intracranial and extracranial atherosclerosis. Recommendations: Continue aspirin and statin, goal LDL less than or equal to 80 For completion check echocardiogram and cardiac telemetry to rule out cardioembolic source which could potentially change our strategy for secondary stroke prevention. Outpatient occupational therapy. Office follow-up prn Consult Acknowledgment - Thank you for your consult request.
[2017-10-01] MEDS ORDERED: ATORVASTATIN CA80 M1 PO ×2 (11:46→13:03)
[2017-10-01] MEDS ORDERED: ASPIRIN81 M4 PO ×2 (11:46→13:03)
--- NOTE | 2017-10-01 11:49 | Patient Discharge Instructions ---
Discharge Instructions General Discharge Information You were seen/treated for: Left arm weakness and was diagnosed with subacute stroke Special Instructions: Please follow-up with PCP within 1 week of discharge Please follow-up with neurologist within 1-2 weeks of discharge Please follow-up with occupational therapy as an outpatient as needed Diet Continue normal diet: Yes Recommended Diet: Low Fat Activity Full Activity/No Limits: Yes Activity Self Limited: Yes Acute Coronary Syndrome Inclusion Criteria At DC or during hospital stay patient has or had the following: ACS DIAGNOSIS No Discharge Core Measures Meds if any: Prescribed or Continued at Discharge Meds if any: NOT Prescribed or Continued at Discharge Congestive Heart Failure Inclusion Criteria At DC or during hospital stay patient has or had the following: CHF DIAGNOSIS No Discharge Core Measures Meds if any: Prescribed or Continued at Discharge Meds if any: NOT Prescribed or Continued at Discharge Cerebrovascular accident Inclusion Criteria At DC or during hospital stay patient has or had the following: CVA/TIA Diagnosis Yes Discharge Core Measures Meds if any: Prescribed or Continued at Discharge Antithrombotic Yes Statin (required if LDL =>70) Yes Anticoagulant No Meds if any: NOT Prescribed or Continued at Discharge Venous thromboembolism Inclusion Criteria VTE Diagnosis No VTE Type NONE VTE Confirmed by (Test) NONE Discharge Core Measures - Per Current guidelines, there needs to be overlap - treatment for the first 5 days of Warfarin therapy. - If discharged on Warfarin prior to 5 days of - overlap therapy, the patient will need to be - assessed for post discharge needs including - *Post discharge parental anticoagulation - *Warfarin and/or parental anticoagulation education - *Follow up date to check INR post discharge At least 5 days overlap therapy as Inpatient No Meds if any: Prescribed or Continued at Discharge Note: Overlap Therapy is Warfarin and Anticoagulant Meds if any: NOT Prescribed or Continued at Discharge
--- NOTE | 2017-10-01 13:18 | ECHOCARDIOGRAM REPORT ---
MICK LARRY Age: 81 : 1935 Gender: F Exam Date: 10/01/2017 12:23 Exam Location: [place] Ht (in): 66 Wt (lb): 180 BSA: 1.97 BP: 154 / 70 Ordering Physician: Jessica Castanon MD Referring Physician: Jessica Castanon MD Technologist: Prashanth Vidal [facility] Room Number: [id number] Indications: HYPERTENSION Rhythm: Sinus Technical Quality: Good FINDINGS Left Ventricle Normal size left ventricle. Mild concentric left ventricular hypertrophy. Normal left ventricular ejection fraction visually estimated at >60%. Normal left ventricular wall motion. Abnormal relaxation filling pattern of the left ventricle for age (stage 1 diastolic dysfunction). Right Ventricle Normal right ventricular size and function. Right Atrium Normal right atrial size. Left Atrium Normal left atrial size. Mitral Valve Moderate mitral annular calcification. Mitral valve thickened. Trace mitral regurgitation. Aortic Valve Diffuse thickening of the aortic valve cusps with reduced excursion. Mild aortic stenosis. No aortic regurgitation. Tricuspid Valve Tricuspid valve not well visualized, grossly normal. Trace tricuspid regurgitation. No evidence of pulmonary hypertension. Pulmonic Valve Pulmonic valve not well visualized, grossly normal. Trace pulmonic regurgitation. Pericardium No pericardial effusion. Great Vessels Normal size aortic root. CONCLUSIONS Normal size left ventricle. Mild concentric left ventricular hypertrophy. Normal left ventricular ejection fraction visually estimated at > 60%. Abnormal relaxation filling pattern of the left ventricle for age (stage 1 diastolic dysfunction). Trace mitral regurgitation. Mild aortic stenosis. Trace tricuspid regurgitation. Trace pulmonic regurgitation. Paulo Fenton M.D. (Electronically Signed) Final Date: 01 Oct 2017 13:18 MEASUREMENTS (Male / Female) Normal Values 2D ECHO LV Diastolic Diameter PLAX 3.7 cm 4.2 - 5.9 / 3.9 - 5.3 cm LV Systolic Diameter PLAX 2.3 cm 2.1 - 4.0 cm LV Fractional Shortening PLAX 37.8 % 25 - 46 % LV Ejection Fraction 2D Teich 68.8 % IVS Diastolic Thickness 1.3 cm LVPW Diastolic Thickness 1.3 cm LV Relative Wall Thickness 0.7 RV Internal Dim ED PLAX 3.4 cm 1.9 - 3.8 cm LVOT Diameter 1.9 cm Aortic Root Diameter 2.7 cm LA Systolic Diameter LX 3.9 cm 3.0 - 4.0 / 2.7 - 3.8 cm LA Volume 45.0 cm 18 - 58 / 22 - 52 cm Ascending Aorta Diameter 3.2 cm DOPPLER AV Peak Velocity 201.0 cm/s AV Peak Gradient 16.2 mmHg AV Mean Velocity 126.0 cm/s AV Mean Gradient 8.0 mmHg AV Velocity Time Integral 53.1 cm LVOT Peak Velocity 127.0 cm/s LVOT Peak Gradient 6.5 mmHg LVOT Mean Velocity 75.1 cm/s LVOT Mean Gradient 3.0 mmHg LVOT Velocity Time Integral 36.4 cm LVOT Stroke Volume 103.2 cm AV Area Cont Eq vti 1.9 cm AV Area Cont Eq pk 1.8 cm MV Peak Velocity 156.0 cm/s MV Peak Gradient 9.7 mmHg MV Mean Velocity 67.6 cm/s MV Mean Gradient 2.0 mmHg Mitral E Point Velocity 92.6 cm/s Mitral A Point Velocity 152.0 cm/s Mitral E to A Ratio 0.6 MV PHT Velocity 96.4 cm/s MV Deceleration [place] 195.0 cm/s MV Pressure Half Time 148.3 ms MV Area PHT 1.5 cm MV Deceleration Time 444.0 ms TR Peak Velocity 235.0 cm/s TR Peak Gradient 22.1 mmHg Right Atrial Pressure 5.0 mmHg Pulmonary Artery Systolic Pressu 27.1 mmHg Right Ventricular Systolic Press 27.1 mmHg PV Peak Velocity 93.7 cm/s PV Peak Gradient 3.5 mmHg PV Mean Velocity 65.3 cm/s PV Mean Gradient 2.0 mmHg PV Velocity Time Integral 26.6 cm LV E' Lateral Velocity 7.5 cm/s Mitral E to LV E' Lateral Ratio 12.3 LV E' Septal Velocity 6.1 cm/s Mitral E to LV E' Septal Ratio 15.1
[2017-10-01 13:57] VITALS: BP 150/40
--- NOTE | 2017-10-02 08:37 | Discharge Summary ---
Visit Information Visit Dates Admission Date: 09/30/17 Discharge Date: 10/01/17 Hospital Course Course Attending Physician: Tari CHILDERS,Arlette Randall Primary Care Physician: Iliana Dahl APRN Hospital Course: 81-year-old female with a past medical history of hypertension and hypothyroidism who presented because of left upper extremity weakness started on the day of admission. She was found to have subacute stroke in the right middle frontal gyrus within the middle cerebral artery. She also had lacunar infarction in the left thalamus. She has a long remote history of smoking but she quit 15 years ago. On admission she had a mild CRISTI slightly improved with hydration. The patient major risk factor or history of smoking, hypertension, and hypothyroidism. There is no need for MRI as CT clearly confirmed subacute infarction. She has no arrhythmias on telemetry which make the thrombus less likely coming from the heart, echo showed stage 1 diastolic dysfunction with EF of 60%. She had carotid stenosis seen on CTA, it 61%, so does not require surgical interventions and can be managed medically. detailed imaging result can be found below. #CVA with left UE weakness She was treated with aspirin and statin, she will need to continue as an out patient. BP was held during first day of admission for permissive HTN. Amlodipine and carvedilol was continued on discharge. The pt was instruced to follow with OT therapy as an out-patient. #Hypothyroidism We continued home dose of 100 levothyroxin. #CRISTI Was mildly elevated on adimssion. Possibly CRISTI, given slight creatinine improvement with hydration. She was instructed to follow with PCP and repeat renal function in 1-2 weeks. Allergies: Coded Allergies: NO KNOWN ALLERGIES (09/17/14) Pertinent Lab Results: SERVICE DATE: 09/30/[id number]-IRCM TYPE: CARD - ECHOCARDIOGRAM MICK LARRY Age: 81 : 1935 Gender: F Exam Date: 10/01/2017 12:23 Exam Location: [place] Ht (in): 66 Wt (lb): 180 BSA: 1.97 BP: 154 / 70 Ordering Physician: Jessica Castanon MD Referring Physician: Jessica Castanon MD Technologist: Prashanth Vidal [facility] Room Number: [id number] Indications: HYPERTENSION Rhythm: Sinus Technical Quality: Good FINDINGS Left Ventricle Normal size left ventricle. Mild concentric left ventricular hypertrophy. Normal left ventricular ejection fraction visually estimated at >60%. Normal left ventricular wall motion. Abnormal relaxation filling pattern of the left ventricle for age (stage 1 diastolic dysfunction). Right Ventricle Normal right ventricular size and function. Right Atrium Normal right atrial size. Left Atrium Normal left atrial size. Mitral Valve Moderate mitral annular calcification. Mitral valve thickened. Trace mitral regurgitation. Aortic Valve Diffuse thickening of the aortic valve cusps with reduced excursion. Mild aortic stenosis. No aortic regurgitation. Tricuspid Valve Tricuspid valve not well visualized, grossly normal. Trace tricuspid regurgitation. No evidence of pulmonary hypertension. Pulmonic Valve Pulmonic valve not well visualized, grossly normal. Trace pulmonic regurgitation. Pericardium No pericardial effusion. Great Vessels Normal size aortic root. CONCLUSIONS Normal size left ventricle. Mild concentric left ventricular hypertrophy. Normal left ventricular ejection fraction visually estimated at > 60%. Abnormal relaxation filling pattern of the left ventricle for age (stage 1 diastolic dysfunction). Trace mitral regurgitation. Mild aortic stenosis. Trace tricuspid regurgitation. Trace pulmonic regurgitation. Paulo Fenton M.D. (Electronically Signed) Final Date: 01 Oct 2017 13:18 MEASUREMENTS (Male / Female) Normal Values 2D ECHO LV Diastolic Diameter PLAX 3.7 cm 4.2 - 5.9 / 3.9 - 5.3 cm LV Systolic Diameter PLAX 2.3 cm 2.1 - 4.0 cm LV Fractional Shortening PLAX 37.8 % 25 - 46 % LV Ejection Fraction 2D Teich 68.8 % IVS Diastolic Thickness 1.3 cm LVPW Diastolic Thickness 1.3 cm LV Relative Wall Thickness 0.7 RV Internal Dim ED PLAX 3.4 cm 1.9 - 3.8 cm LVOT Diameter 1.9 cm Aortic Root Diameter 2.7 cm LA Systolic Diameter LX 3.9 cm 3.0 - 4.0 / 2.7 - 3.8 cm LA Volume 45.0 cm 18 - 58 / 22 - 52 cm Ascending Aorta Diameter 3.2 cm DOPPLER AV Peak Velocity 201.0 cm/s AV Peak Gradient 16.2 mmHg AV Mean Velocity 126.0 cm/s AV Mean Gradient 8.0 mmHg AV Velocity Time Integral 53.1 cm LVOT Peak Velocity 127.0 cm/s LVOT Peak Gradient 6.5 mmHg LVOT Mean Velocity 75.1 cm/s LVOT Mean Gradient 3.0 mmHg LVOT Velocity Time Integral 36.4 cm LVOT Stroke Volume 103.2 cm AV Area Cont Eq vti 1.9 cm AV Area Cont Eq pk 1.8 cm MV Peak Velocity 156.0 cm/s MV Peak Gradient 9.7 mmHg MV Mean Velocity 67.6 cm/s MV Mean Gradient 2.0 mmHg Mitral E Point Velocity 92.6 cm/s Mitral A Point Velocity 152.0 cm/s Mitral E to A Ratio 0.6 MV PHT Velocity 96.4 cm/s MV Deceleration Storey 195.0 cm/s MV Pressure Half Time 148.3 ms MV Area PHT 1.5 cm MV Deceleration Time 444.0 ms TR Peak Velocity 235.0 cm/s TR Peak Gradient 22.1 mmHg Right Atrial Pressure 5.0 mmHg Pulmonary Artery Systolic Pressu 27.1 mmHg Right Ventricular Systolic Press 27.1 mmHg PV Peak Velocity 93.7 cm/s PV Peak Gradient 3.5 mmHg PV Mean Velocity 65.3 cm/s PV Mean Gradient 2.0 mmHg PV Velocity Time Integral 26.6 cm LV E' Lateral Velocity 7.5 cm/s Mitral E to LV E' Lateral Ratio 12.3 LV E' Septal Velocity 6.1 cm/s Mitral E to LV E' Septal Ratio 15.1 SERVICE DATE: 09/30/[id number] TYPE: CAT - CT HEAD ANGIOGRAM; CT NECK ANGIOGRAM EXAMINATION: CT ANGIOGRAM NECK WITH CONTRAST CT ANGIOGRAM BRAIN WITH CONTRAST CLINICAL INFORMATION: Left arm weakness. COMPARISON: Head CT performed earlier the same day. TECHNIQUE: Test bolus sequences followed by intravenous administration 95 mL of Optiray 320. Helical imaging was performed in the axial plane from the thoracic inlet to the skull vertex. Delayed postcontrast imaging of the head was also performed. The data was processed at the vascular technologist workstation for generation of MIP sequences. Angled MIPs and volume rendered reformatted images were also generated at an offline 3D workstation. Stenoses are assessed in accordance with NASCET criteria unless otherwise indicated. DLP: 1005 mGy-cm FINDINGS: Brain: There is focal hypoattenuation in the right middle frontal gyrus with gyriform enhancement on the postcontrast images typical of a subacute infarct. There is no CT evidence of large territory infarction. Chronic lacunar infarct in the left thalamus. There is moderate scattered hypoattenuation in the bilateral cerebral white matter, which is nonspecific but likely reflects small vessel disease. There is mild diffuse brain parenchymal volume loss with prominence of the ventricles and sulci. No evidence of hydrocephalus. There is mild to moderate paranasal sinus mucosal thickening. Neck CTA: There is severe atheromatous change involving the aortic arch but without severe stenosis of the great vessel origins. There are atheromatous changes involving the bilateral common carotid arteries without significant stenosis. Atheromatous changes at the bilateral carotid bifurcations extending into the proximal internal carotid arteries resulting in 61% stenosis of the proximal right ICA and less than 50% stenosis of the proximal left ICA. The cervical segments of both internal carotid arteries are patent. There is moderate stenosis at the left vertebral artery origin. Both vertebral artery cervical segments are patent. Head CTA: No intracranial aneurysm or large vessel occlusion is seen. ACAs and MCAs are patent. The intradural vertebral arteries and basilar artery are patent. There is focal stenosis involving the calcarine and parieto-occipital branches of the right FRUIT GROWER. The left FRUIT GROWER is patent. The posterior communicating arteries are atretic. Non-vascular findings: There are emphysematous changes at the bilateral lung apices without consolidation or mass. Multilevel degenerative changes are seen throughout the cervical and upper thoracic spine. There is no neck mass or fluid collection. IMPRESSION: CT head: - No intracranial hemorrhage or large acute acute infarction. - Subacute infarct in the right middle frontal gyrus within the middle cerebral artery territory with associated enhancement. - Chronic lacunar infarct in the left thalamus and background changes of moderate microangiopathy. CTA neck: - Atheromatous changes result in 61% stenosis of the proximal right ICA with less than 50% stenosis of the proximal left ICA. - Moderate stenosis of the left vertebral artery origin. - Severe atheromatous changes involving the aortic arch. CTA head: - No large vessel occlusion. - Focal stenoses involving the calcarine and parieto-occipital branches of the right FRUIT GROWER. Disposition Summary Disposition Principal Diagnosis: CVA with left UE weakness Additional Diagnosis: HTN CRISTI Discharge Disposition: home or self care Discharge Instructions General Discharge Information Code Status: Full Code Patient's Diet: heart healthy Patient's Activity: as tolerated Follow-Up Instructions/Appts: please follow with PCP, neurology and OT as an out patient Medications at Discharge Discharge Medications: Continue taking these medications: Carvedilol (Carvedilol) 25 MG TABLET 1 Tablet ORAL TWICE DAILY Qty = 180 Comments: Last Taken: 10/01/17 Time: 10:00 AM Levothyroxine Sodium (Levothyroxine Sodium) 100 MCG TABLET 1 Tablet ORAL DAILY Qty = 90 Comments: Last Taken: 10/01/17 Time: 5:45 AM Amlodipine Besylate (Amlodipine Besylate) 10 MG TABLET 1 Tablet ORAL DAILY Qty = 90 Comments: Last Taken: 10/01/17 Time: 1:35 PM Start taking the following new medications: Aspirin (Aspirin*) 81 MG TAB.CHEW 81 Milligram ORAL DAILY Qty = 30 No Refills Instructions: . Comments: Last Taken: 10/01/17 Time: 9:00 AM Atorvastatin Calcium (Atorvastatin Calcium) 80 MG TABLET 80 Milligram ORAL 5 PM Qty = 30 No Refills Comments: Last Taken: 09/30/17 Time: 6:15 PM Copies To: Iliana Dahl APRN; Semaj CHILDERS,Gerda Nam
== END 2017-10-01 14:45 | DRG 65 ==
LOC: ERH 12:45 → ERHI 15:50 → ENRESERV 16:26 → 1NO 17:18 → ENPENDDIS 10-01 13:31 → ENTRNSPT 10-01 14:13 → 1NO 10-01 14:45 → CMPTRNSPT 10-01 14:51
PROVIDERS: Physician Assistant; Student in an Organized Health Care Education/Training Program
DX: I63.9 Cerebral infarction, unspecified (principal); N17.9 Acute kidney failure, unspecified; E86.0 Dehydration; I67.2 Cerebral atherosclerosis; I10 Essential (primary) hypertension; E03.9 Hypothyroidism, unspecified; G83.24 Monoplegia of upper limb affecting left nondominant side; Z87.891 Personal history of nicotine dependence
CPT/HCPCS: 1NP; 36592; 73030-LT; 82436; 93005; 93010; 93306; 97165-GO; 99291; J1644; J3490; J7040